=== PATIENT | female | born 1980 | race Caucasian/White ===

== ENCOUNTER → 2016-07-21 | Outpatient (CLI) | payer BC ==
[~2016-07-21] MED LIST: ACHYD1T PO; ALPR.25T PO; ASP81TEC PO; BC PILL PO; DCS100C PO; HYDR-3583 PO; IBP800T PO; MULT-608 PO; PREN1TAB39
--- OUTSIDE RECORDS SUMMARY | 2016-07-21 10:12 | XMS REPORT | Continuity of Care Document ---
Author Author [facility] Organization [facility] Address Unknown Phone Unavailable Care Team Providers Care [employer] Developer Name Role Phone Lobo Fontenot PCP [phone] Source Comments Some departments are not documenting in the electronic medical record. If you do not see the information that you expected, contact Release of Information in the Health Information Management department at [phone] for further assistance in locating additional records.[facility] Active Allergies and Adverse Reactions Not on File Current Medications Not on file Active Problems Not on file Social History Tobacco Use Types Packs/Day Years Used Date Never Assessed Plan of Care Health Maintenance Due Date Last Done Comments Physical (Comprehensive) 01/18/1987 Exam Pertussis Vaccine 01/18/1991 Tetanus Vaccine 01/18/1997 Cervical Cancer Screening 01/18/2001 Influenza Vaccine 02/25/2016 Results from Last 3 Months Not on file
== END ==
LOC: CARD 10:09
PROVIDERS: ATTEND Family Medicine
DX: R00.2 Palpitations (principal)
CPT/HCPCS: 93005

== ENCOUNTER → 2016-10-04 | Outpatient (CLI) | payer BC ==
[~2016-10-04] MED LIST changes: +CATHETER FLUSH 10 ML SYR IV PRN; +IOHEXOL 350 MG/ML 100 ML (OMNIPAQUE 350) VIAL IV ONE; +NS 100 ML (IVPB) BAG IV ONE
--- NOTE | 2016-10-04 08:56 | Diagnostic Imaging Report ---
PROCEDURE: CT head with and without contrast. TECHNIQUE: Multiple contiguous axial images were obtained through the brain before and after the administration of intravenous contrast. INDICATION: Headache. Dizziness. CONTRAST: 80 mL of Omnipaque 350 was administered intravenously. FINDINGS: The unenhanced phase demonstrates no intracranial hemorrhage. The brain parenchyma and rolle/white matter differentiation are preserved. There is no hydrocephalus. No extra-axial fluid collection is seen. There is no enhancing mass in the brain or extra-axial space identified. The visualized portions of the paranasal sinuses, orbits, and calvarium appear grossly unremarkable. IMPRESSION: Unremarkable exam. Dictated by: Dictated on workstation # [id number]
== END ==
LOC: RAD 08:07
PROVIDERS: ATTEND Nurse Practitioner Family
DX: R51 Headache (principal); R50.9 Fever, unspecified; R42 Dizziness and giddiness; R20.0 Anesthesia of skin
CPT/HCPCS: 70470

== ENCOUNTER → 2019-09-12 | Outpatient (CLI) | payer BC ==
[~2019-09-12] MED LIST changes: -CATHETER FLUSH 10 ML SYR IV PRN; -IOHEXOL 350 MG/ML 100 ML (OMNIPAQUE 350) VIAL IV ONE; -NS 100 ML (IVPB) BAG IV ONE
--- NOTE | 2019-09-12 15:35 | Diagnostic Imaging Report ---
PROCEDURE: US Non-OB pelvis comp/trans. TECHNIQUE: Multiple realtime grayscale images were obtained of the pelvis in various projections, endovaginally. Transabdominal imaging was also performed. INDICATION: Right ovarian cyst noted on MRI. COMPARISON: No recent MRI studies available for direct comparison. FINDINGS: The uterus is surgically absent. Left ovary reportedly is absent as well. Right ovary measures 5.8 x 4.9 x 4.3 cm. There is a somewhat complex appearing mass involving the right ovary with internal septations, measuring 4.0 x 3.2 x 3.8 cm. No definite internal vascularity is present. No free fluid is seen. IMPRESSION: Complex right ovarian mass, indeterminate. Close follow-up with repeat ultrasound in 6-8 weeks is recommended to confirm clearing. Dictated by: Dictated on workstation # [id number]
== END ==
LOC: RAD 13:39
PROVIDERS: ATTEND Family Medicine
DX: N83.9 Noninflammatory disorder of ovary, fallopian tube and broad ligament, unspecified (principal)
CPT/HCPCS: 76830; 76856

== ENCOUNTER → 2020-09-23 | Outpatient (CLI) | payer BC ==
--- NOTE | 2020-09-23 17:08 | Diagnostic Imaging Report ---
PROCEDURE: US PELVIC (NON OB) TECHNIQUE: Multiple real-time grayscale images were obtained over the pelvis in various projections transabdominally. INDICATION: Right ovarian cyst followup. Uterus is surgically absent. There is a 3.0 x 2.0 x 2.2 cm cyst on the right ovary. This has simple cyst features. There is an adjacent simple cyst that measures 1.5 cm in diameter. Left adnexa is unremarkable. IMPRESSION: Right adnexal cyst has evolved into 2 benign-appearing simple cysts. Dictated by: Dictated on workstation # [id number]
== END ==
LOC: RAD 10:05
PROVIDERS: ATTEND Family Medicine
DX: N83.201 Unspecified ovarian cyst, right side (principal)
CPT/HCPCS: 76856